=== PATIENT | female | born 1970 | race Caucasian/White ===

== ENCOUNTER → 2019-12-18 | Emergency (ER) | payer OTHER ==
[~2019-12-18] VITALS: Ht 165.1 cm; Wt 68.0 kg
[~2019-12-18] MED LIST: ASPirin 81 mg TAB PO ONE; IOHEXOL 350 MG/ML 100ML IJ ONE
[2019-12-18 17:41] LABS: Basophils # (auto) 0 10 ^3/uL (0-0.2); Eosinophils # (auto) 0.1 10 ^3/uL (0-0.8); Hemoglobin 14.9 g/dL (12.2-16.2); Nucleated Red Blood Cells % 0.1 %
[2019-12-18 17:44] LABS: Basophils % (auto) 0.4 % (0.0-2.0); Eosinophils % (auto) 1.6 % (0.0-7.0); Hematocrit 42.8 % (36.0-46.0); Mean Corpuscular Hemoglobin 35.3 pg (28.0-32.0); Mean Corpuscular Hgb Conc. 34.8 g/dL (32.0-36.0); Mean Corpuscular Volume 101.4 fL (80.0-100.0); Monocytes # (auto) 0.4 10 ^3/uL (0-1.3); Monocytes % (auto) 5.5 % (0.0-12.0); Neutrophils % (auto) 61.5 % (37.0-80.0); Platelet Count (auto) 227 10^3/uL (140-450); Red Blood Cells 4.22 10^6/uL (4.0-5.20); Red Cell Distribution Width 12.4 % (11.8-14.3); White Blood Cell 6.5 10^3/uL (4.4-10.8)
[2019-12-18 18:00] LABS: Albumin 3.2 g/dL (3.4-5.0); Anion Gap 6 (5-15); Blood Urea Nitrogen 6 mg/dL (7-18); Calcium 8.3 mg/dL (8.5-10.1); Carbon Dioxide 28 mmol/L (21-32); Chloride 103 mmol/L (98-107); Glucose 159 mg/dL (74-106); Potassium 3.3 mmol/L (3.5-5.1); Sodium 137 mmol/L (136-145)
[2019-12-18 18:02] LABS: Alanine Aminotransferase 16 U/L (13-56); Aspartate Aminotransferase 12 U/L (15-37); BUN/Creatinine Ratio 7.4; GFR African American 97 mL/min; GFR Non-African American 80 mL/min
[2019-12-18 18:04] LABS: Alkaline Phosphatase 50 U/L (45-117); Bilirubin, Total 0.8 mg/dL (0.2-1.0); Total Protein 6.6 g/dL (6.4-8.2)
[2019-12-18 19:15] LABS: CRP High Sensitivity 0.12 mg/dL (< 0.3)
[2019-12-18 22:55] VITALS: BP 137/79
[2019-12-19 03:39] LABS: Lactate Dehydrogenase 131 U/L (84-246)
== END | disposition home or self-care (01) ==
LOC: ER 16:27
DX: R07.89 Other chest pain (principal); F17.210 Nicotine dependence, cigarettes, uncomplicated; Z20.828 Contact with and (suspected) exposure to other viral communicable diseases
CPT/HCPCS: 36415; 71045; 80053; 82728; 83615; 83880; 84484; 85025; 85379; 86141; 93005; 99285; C9803; Q9967; U0003